=== PATIENT | female | born 1975 | race Caucasian/White ===

== ENCOUNTER 2019-08-29 20:08 | Emergency (ER) | payer SELFPAY ==
[~2019-08-29] VITALS: Ht 170.2 cm; Wt 60.0 kg
[2019-08-29] MEDS ORDERED: fentaNYL PF VIAL 100 MCG/2 ML VIAL IVP ONE (21:30)
[2019-08-29] MEDS ORDERED: DICYCLOMINE HCL 10 MG CAPSULE PO ONE (21:30)
[2019-08-29] MEDS ORDERED: FAMOTIDINE 20 MG/2 ML VIAL IVP ONE (21:30)
[2019-08-29] MEDS ORDERED: IV NORMAL SALINE 1000ML BAG 1,000 ML IV ONE (21:30)
[2019-08-29 21:43] LABS: AMPHETAMINE/METHAMPHETAMINE NEG (NEG); BARBITURATES NEG (NEG); BENZODIAZEPINES NEG (NEG); CANNABINOIDS NEG (NEG); COCAINE NEG (NEG); METHADONE NEG (NEG); OPIATES NEG (NEG); PHENCYCLIDINE NEG (NEG)
[2019-08-29 21:46] LABS: BILIRUBIN,URINE NEGATIVE (NEG); CLARITY,URINE CLEAR; COLOR,URINE YELLOW; NITRITE,URINE NEGATIVE (NEG); PH,URINE 5.5; PROTEIN,URINE NEGATIVE (NEG-TRACE); UROBILINOGEN,URINE 0.2 mg/dL (0.2 mg/dL)
[2019-08-29 21:47] LABS: BACTERIA,URINE MOD /HPF (0-FEW); RBC,URINE 0 /HPF (0-2); SQUAMOUS EPITHELIAL CELL,UR MOD /LPF; WBC,URINE OCC /HPF (0-4)
[2019-08-29 21:52] LABS: BASO # 0.1 x10^3/uL (0.0-0.2); BASO % 0 % (0-3); EOS # 0.1 x10^3/uL (0.0-0.7); EOS % 1 % (0-3); HEMATOCRIT 42.1 % (36.0-47.0); HEMOGLOBIN 13.9 g/dL (12.0-15.5); LYMPH # 1.5 x10^3/uL (1.0-4.8); LYMPH % 6 % (24-48); MEAN CORPUSCULAR HEMOGLOBIN 30 pg (25-35); MEAN CORPUSCULAR HGB CONC 33 g/dL (31-37); MEAN CORPUSCULAR VOLUME 90 fL (79-100); MONO # 1.1 x10^3/uL (0.0-1.1); MONO % 5 % (0-9); NEUT % 88 % (31-73); PLATELET COUNT 296 x10^3/uL (140-400); RED BLOOD COUNT 4.68 x10^6/uL (3.50-5.40); RED CELL DISTRIBUTION WIDTH 13.4 % (11.5-14.5); WHITE BLOOD COUNT 22.8 x10^3/uL (4.0-11.0)
[2019-08-29 22:00] LABS: CALCIUM 9.6 mg/dL (8.5-10.1); CREATININE 0.8 mg/dL (0.6-1.0); GFR 78.3; POTASSIUM 3.6 mmol/L (3.5-5.1)
[2019-08-29 22:06] LABS: ALBUMIN/GLOBULIN RATIO 1.1 (1.0-1.7); TOTAL BILIRUBIN 0.3 mg/dL (0.2-1.0); TOTAL PROTEIN 7.5 g/dL (6.4-8.2)
[2019-08-29 22:12] LABS: % BANDS 11 % (0-9); % LYMPHS 8 % (24-48); % MONOS 9 % (0-10); % SEGS 72 % (35-66); PLT ESTIMATE ADEQUATE (ADEQUATE)
[2019-08-29] MEDS ORDERED: CONTRAST GIVEN. MC PRN (22:45)
--- NOTE | 2019-08-29 22:57 | PHYS DOC ---
Past Medical History Past Medical History: Other Additional Past Medical Histor: kidney donor Past Surgical History: , Hysterectomy, Other Additional Past Surgical Histo: neprhectomy Alcohol Use: None Adult General Chief Complaint Chief Complaint: ABDOMINAL PAIN HPI HPI Patient is a 43 year old female with history of elective nephrectomy for donation, who presents to the ED today complaining of moderate generalized cramping type intermittent abdominal pain with nausea vomiting and diarrhea that began at 7 PM tonight. Patient denies any hematemesis or melena. Denies any specific exacerbating or relieving factors. Review of Systems Review of Systems Constitutional: Denies fever or chills [] Eyes: Denies change in visual acuity, redness, or eye pain [] HENT: Denies nasal congestion or sore throat [] Respiratory: Denies cough or shortness of breath [] Cardiovascular: No additional information not addressed in HPI [] GI: Reports abdominal pain with nausea vomiting and diarrhea, denies any hematemesis or melena : Denies dysuria or hematuria [] Musculoskeletal: Denies back pain or joint pain [] Integument: Denies rash or skin lesions [] Neurologic: Denies headache, focal weakness or sensory changes [] All other systems were reviewed and found to be within normal limits, except as documented in this note. Current Medications Current Medications Current Medications Medications (Trade) Dose Ordered Sig/Julio C Start Time Stop Time Status Last Admin Dose Admin Dicyclomine HCl (Bentyl) 20 mg 1X ONCE 08/29/19 21:30 08/29/19 21:31 DC 08/29/19 21:58 20 MG Famotidine (Pepcid Vial) 20 mg 1X ONCE 08/29/19 21:30 08/29/19 21:31 DC 08/29/19 22:00 20 MG Fentanyl Citrate (Fentanyl 2ml Vial) 50 mcg 1X ONCE 08/29/19 21:30 08/29/19 21:31 DC 08/29/19 22:06 50 MCG Info (CONTRAST GIVEN -- Rx MONITORING) 1 each PRN DAILY PRN 08/29/19 22:45 08/31/19 22:44 Iohexol (Omnipaque 300 Mg/ml) 75 ml 1X ONCE 08/29/19 23:00 08/29/19 23:01 DC Sodium Chloride 1,000 ml @ 1,000 mls/hr 1X ONCE 08/29/19 21:30 08/29/19 22:29 DC 08/29/19 21:30 1,000 MLS/HR Allergies Allergies Allergies Coded Allergies Type Severity Reaction Last Updated Verified morphine Allergy Severe swelling 08/29/19 Yes Penicillins Allergy Intermediate hives 08/29/19 Yes Physical Exam Physical Exam Constitutional: Well developed, well nourished, no acute distress, non-toxic appearance. [] HENT: Normocephalic, atraumatic, bilateral external ears normal, oropharynx moist, no oral exudates, nose normal. [] Eyes: PERRLA, EOMI, conjunctiva normal, no discharge. [] Neck: Normal range of motion, no tenderness, supple, no stridor. [] Cardiovascular:Heart rate regular rhythm, no murmur [] Lungs & Thorax: Bilateral breath sounds clear to auscultation [] Abdomen: Old healed surgical incision noted on the right upper quadrant from nephrectomy. Bowel sounds normal, soft, diffuse tenderness throughout the abdomen, no point tenderness to the right upper quadrant or right lower quadrant, negative psoas sign, negative obturator sign negative Rovsing sign, no masses, no pulsatile masses. [] Skin: Warm, dry, no erythema, no rash. [] Back: No tenderness, no CVA tenderness. [] Extremities: No tenderness, no cyanosis, no clubbing, ROM intact, no edema. [] Neurologic: Alert and oriented X 3, normal motor function, normal sensory function, no focal deficits noted. [] Psychologic: Affect normal, judgement normal, mood normal. [] Current Patient Data Vital Signs Vital Signs Date Time Temp Pulse Resp B/P (MAP) Pulse Ox O2 Delivery O2 Flow Rate FiO2 08/29/19 22:06 20 99 08/29/19 20:35 97.8 95 106/65 (79) Room Air 97.8 Lab Values Laboratory Tests Test 08/29/19 20:47 08/29/19 21:25 08/29/19 21:35 POC Urine HCG, Qualitative Hcg negative (Negative) Urine Collection Type Unknown Urine Color Yellow Urine Clarity Clear Urine pH 5.5 Urine Specific [place] >=1.030 Urine Protein Negative mg/dL (NEG-TRACE) Urine Glucose (UA) Negative mg/dL (NEG) Urine Ketones (Stick) Negative mg/dL (NEG) Urine Blood Negative (NEG) Urine Nitrite Negative (NEG) Urine Bilirubin Negative (NEG) Urine Urobilinogen Dipstick 0.2 mg/dL (0.2 mg/dL) Urine Leukocyte Esterase Negative (NEG) Urine RBC 0 /HPF (0-2) Urine WBC Occ /HPF (0-4) Urine Squamous Epithelial Cells Mod /LPF Urine Bacteria Mod /HPF (0-FEW) Urine Mucus Mod /LPF Urine Opiates Screen Neg (NEG) Urine Methadone Screen Neg (NEG) Urine Barbiturates Neg (NEG) Urine Phencyclidine Screen Neg (NEG) Urine Amphetamine/Methamphetamine Neg (NEG) Urine Benzodiazepines Screen Neg (NEG) Urine Cocaine Screen Neg (NEG) Urine Cannabinoids Screen Neg (NEG) Urine Ethyl Alcohol Neg (NEG) White Blood Count 22.8 x10^3/uL (4.0-11.0) H Red Blood Count 4.68 x10^6/uL (3.50-5.40) Hemoglobin 13.9 g/dL (12.0-15.5) Hematocrit 42.1 % (36.0-47.0) Mean Corpuscular Volume 90 fL (79-100) Mean Corpuscular Hemoglobin 30 pg (25-35) Mean Corpuscular Hemoglobin Concent 33 g/dL (31-37) Red Cell Distribution Width 13.4 % (11.5-14.5) Platelet Count 296 x10^3/uL (140-400) Neutrophils (%) (Auto) 88 % (31-73) H Lymphocytes (%) (Auto) 6 % (24-48) L Monocytes (%) (Auto) 5 % (0-9) Eosinophils (%) (Auto) 1 % (0-3) Basophils (%) (Auto) 0 % (0-3) Neutrophils # (Auto) 20.0 x10^3/uL (1.8-7.7) H Lymphocytes # (Auto) 1.5 x10^3/uL (1.0-4.8) Monocytes # (Auto) 1.1 x10^3/uL (0.0-1.1) Eosinophils # (Auto) 0.1 x10^3/uL (0.0-0.7) Basophils # (Auto) 0.1 x10^3/uL (0.0-0.2) Segmented Neutrophils % 72 % (35-66) H Band Neutrophils % 11 % (0-9) H Lymphocytes % 8 % (24-48) L Monocytes % 9 % (0-10) Platelet Estimate Adequate (ADEQUATE) Sodium Level 145 mmol/L (136-145) Potassium Level 3.6 mmol/L (3.5-5.1) Chloride Level 105 mmol/L (98-107) Carbon Dioxide Level 29 mmol/L (21-32) Anion Gap 11 (6-14) Blood Urea Nitrogen 12 mg/dL (7-20) Creatinine 0.8 mg/dL (0.6-1.0) Estimated GFR (Cockcroft-Gault) 78.3 BUN/Creatinine Ratio 15 (6-20) Glucose Level 92 mg/dL (70-99) Calcium Level 9.6 mg/dL (8.5-10.1) Total Bilirubin 0.3 mg/dL (0.2-1.0) Aspartate Amino Transferase (AST) 12 U/L (15-37) L Alanine Aminotransferase (ALT) 15 U/L (14-59) Alkaline Phosphatase 83 U/L (46-116) Total Protein 7.5 g/dL (6.4-8.2) Albumin 4.0 g/dL (3.4-5.0) Albumin/Globulin Ratio 1.1 (1.0-1.7) Lipase 170 U/L (73-393) Ethyl Alcohol Level < 10 mg/dL (0-10) Laboratory Tests 08/29/19 21:35 Laboratory Tests 08/29/19 21:35 EKG EKG [] Radiology/Procedures Radiology/Procedures []PROCEDURE: CT ABD PELV W/ IV CONTRST ONLY CT SCAN OF THE ABDOMEN AND PELVIS WITH IV CONTRAST. History: Abdominal pain Comparison:None. Procedure: Contiguous axial images of the abdomen and pelvis were performed after the administration of 75 cc of Omni 300 IV contrast. Oral contrast: No. Findings: There is a small caliber loop of bowel posterior to the cecum which could be a normal appendix. Liver: Tiny cyst Spleen: Unremarkable Pancreas: Unremarkable Adrenal Glands: Unremarkable Kidneys: Prior right nephrectomy There is no mass or lymphadenopathy. There is no free air. There is no free fluid. The urinary bladder appears normal. Impression: No acute findings. PQRS Compliance Statement: One or more of the following individualized dose reduction techniques were utilized for this examination: 1. Automated exposure control 2. Adjustment of the mA and/or kV according to patient size 3. Use of iterative reconstruction technique Electronically signed by: Ulises Baron III, MD (08/29/2019 11:16 PM) [id number] DICTATED and SIGNED BY: ULISES BARON III, MD DATE: 08/29/19 2316 Course & Med Decision Making Course & Med Decision Making Pertinent Labs and Imaging studies reviewed. (See chart for details) This is a 43-year-old female patient presenting to the ED today with generalized abdominal pain, nausea vomiting and diarrhea, symptoms began at 7 PM. Vitals on arrival to the ED temperature 97.8, heart rate 95, respirations 16 on room air, blood pressure 106/65, O2 sats 96% on room air. CBC with a WBC of 22.8, slight left shift, and slight bandemia. Urine analysis is negative for infection, CMP with no acute findings Patient was given IV fluids, dicyclomine and fentanyl. Pain is well controlled, currently tolerating PO challenge. Requesting to be discharged to home vs admission. I do not have a source for her infection right now will d/c with caprice Ely to cover for possible colitis. She has good follow-up with her PCP. She appears well. Does not look septic. Dragon Disclaimer Dragon Disclaimer This electronic medical record was generated, in whole or in part, using a voice recognition dictation system. Departure Departure Impression: Primary Impression: Abdominal pain Additional Impressions: Vomiting and diarrhea Leukocytosis Disposition: HOME, SELF-CARE Condition: STABLE Referrals: KYAW BOATENG (PCP) follow up in the course of this week Patient Instructions: Abdominal Pain, Diarrhea, Nausea and Vomiting Additional Instructions: You were evaluated in the emergency room for abdominal pain with nausea vomiting and diarrhea. Your white count is elevated, we put on antibiotics which you can start taking as soon as you get the medicine. Try and push fluids, maintain good hand hygiene, follow-up with your own doctor in the course of this week. Come back to the ED at any point symptoms worsen. Scripts Dicyclomine Hcl (DICYCLOMINE HCL) 20 Mg Tablet 1 TAB PO TID, #30 TAB 1 Refill Prov: MUTUNGA,RADHA FI[employer] SERVICE SPECIALIST 08/30/19 Ciprofloxacin Hcl (CIPRO) 500 Mg Tablet 1 TAB PO BID for 7 Days, #14 TAB 0 Refills Prov: MUTUNGA,RADHA FI[employer] SERVICE SPECIALIST 08/30/19 Metronidazole (FLAGYL) 500 Mg Tablet 500 MG PO TID, #21 TAB Prov: RADHA IRENE APRN 20 Ondansetron (ONDANSETRON ODT) 4 Mg Tab.rapdis 1 TAB PO PRN Q6-8HRS, #20 TAB Prov: RADHA IRENE APRN 08/30/19 Hydrocodone/Apap 5-325 (NORCO 5-325 TABLET) 1 Each Tablet 1 TAB PO Q6-8HRS PRN for PAIN, #20 TAB Prov: RADHA IRENE APRN 08/30/19 Problem Qualifiers Primary Impression: Abdominal pain Abdominal location: generalized Qualified Codes: R10.84 - Generalized abdominal pain Additional Impressions: Leukocytosis Leukocytosis type: bandemia Qualified Codes: D72.825 - Bandemia RADHA IRENE APRN Aug 29, 2019 22:57
[2019-08-29] MEDS ORDERED: IOHEXOL 300 MG/ML 100ML VIAL. IV ONE (23:00)
--- NOTE | 2019-08-29 23:19 | RAD ---
CT SCAN OF THE ABDOMEN AND PELVIS WITH IV CONTRAST. History: Abdominal pain Comparison:None. Procedure: Contiguous axial images of the abdomen and pelvis were performed after the administration of 75 cc of Omni 300 IV contrast. Oral contrast: No. Findings: There is a small caliber loop of bowel posterior to the cecum which could be a normal appendix. Liver: Tiny cyst Spleen: Unremarkable Pancreas: Unremarkable Adrenal Glands: Unremarkable Kidneys: Prior right nephrectomy There is no mass or lymphadenopathy. There is no free air. There is no free fluid. The urinary bladder appears normal. Impression: No acute findings. PQRS Compliance Statement: One or more of the following individualized dose reduction techniques were utilized for this examination: 1. Automated exposure control 2. Adjustment of the mA and/or kV according to patient size 3. Use of iterative reconstruction technique Electronically signed by: Lucho Rodriguez III, MD (08/29/2019 11:16 PM) [id number]
[2019-08-30] MEDS ORDERED: fentaNYL PF VIAL 100 MCG/2 ML VIAL IVP ONE
[2019-08-30] MEDS ORDERED: HYDR-3164 PO (00:16)
[2019-08-30] MEDS ORDERED: METR500T PO (00:16)
[2019-08-30] MEDS ORDERED: ONDA4TAB12 PO (00:16)
[2019-08-30] MEDS ORDERED: DICY20TA3 PO (00:16)
[2019-08-30] MEDS ORDERED: CIPR500T94 PO (00:16)
[2019-08-30 00:31] VITALS: BP 102/69
== END 2019-08-30 00:44 | disposition home or self-care (01) ==
LOC: ER 20:08
DX: R10.84 Generalized abdominal pain (principal); R11.2 Nausea with vomiting, unspecified; R19.7 Diarrhea, unspecified; D72.825 Bandemia; Z90.710 Acquired absence of both cervix and uterus; Z98.890 Other specified postprocedural states; Z88.0 Allergy status to penicillin; Z88.6 Allergy status to analgesic agent
CPT/HCPCS: 36415; 74177; 80053; 80307; 81001; 81025; 83690; 85007; 85025; 96361; 96374; 96375; 96376; 99285; G0480; J3010; J3490; J7030; Q9967